=== PATIENT | female | born 1955 | race Caucasian/White ===

== ENCOUNTER → 2018-05-14 | Day surgery (SDC) | payer BC ==
[~2018-05-14] MED LIST: FENTANYL CITRATE/PF 100MCG/2 ML INJ ONE; GABAPENTIN800 MG PO; LIDOCAINE HCL 2% LOCAL INJ 5 ML SDV VIAL INJ ONE; MIDAZOLAM HCL 2 MG/2 ML VIAL ONE; PROPOFOL IV EMULSION 10 MG/ML 50 ML VIAL ONE; VIMOVO PO; XYZAL5 MG PO
--- NOTE | 2018-05-14 15:34 | Operative Report ---
DATE OF PROCEDURE: May 14, 2018 REFERRING PHYSICIAN: Dr. Carlos Andersen PROCEDURES PERFORMED 1. Esophagogastroduodenoscopy with biopsies. 2. Colonoscopy with biopsies. INDICATIONS FOR EGD: Upper abdominal pain, nausea, heartburn, indigestion. INDICATIONS FOR COLONOSCOPY: Colorectal cancer screening. Personal history of colon polyps and diarrhea. MEDICATION: Patient was done under MAC. Please see anesthesiologist's note. PROCEDURE: With the patient in the left lateral decubitus position, the flexible fiberoptic Olympus gastroscope was introduced into the esophagus under direct visualization without any difficulty. There was some patchy erythema noted in the distal esophagus. The scope was then advanced with ease into the stomach. Mucosa overlying the antrum and the body revealed some diffuse erythema and mild to moderate edema, and biopsies were obtained and sent to stain for H. pylori. The pylorus was of normal contour and shape. It was intubated with ease, and the scope was advanced all the way to the 2nd portion of the duodenum. Mucosa overlying the proximal 2nd portion appeared to be within normal limits. There was a linear ulcer in the duodenal bulb with heaped-up nodular margins, and that was biopsied. The scope was then withdrawn back into the stomach and retroflexed. The mucosa overlying the fundus and the cardia appeared to be within normal limits. The scope was then straightened out. The stomach was decompressed. Scope was subsequently withdrawn. Patient tolerated the procedure well. IMPRESSION 1. Distal esophagitis, mild. 2. Gastritis, biopsied. Biopsies sent to stain for H. pylori. 3. A linear ulcer, bulb, with heaped-up nodular margins. Biopsies obtained. PLAN: Follow up histology. Initiate Protonix 40 mg 1 p.o. q.a.m. a.c. The patient was then turned around. After adequate lubrication of the anal canal, a flexible fiberoptic Olympus colonoscope was inserted into the rectum with ease and advanced all the way to the cecum. It was then withdrawn slowly. Mucosa overlying the cecum, ascending and transverse appeared to be within normal limits. Some mild inflammatory changes were noted in the left colon, and multiple random biopsies were obtained. The scope was then retroflexed into the distal rectum, and small internal hemorrhoids were noted, none of which was actively bleeding. The scope was then straightened out. It was subsequently withdrawn. Patient tolerated the procedure well. IMPRESSION 1. Mild, patchy, left-sided colitis. 2. Internal hemorrhoids, none actively bleeding. PLAN: Follow up histology. Initiate Bentyl 10 mg 1 p.o. t.i.d. and VSL #3 one p.o. daily. Patient might benefit from a followup colonoscopy in 3 to 5 years. Job#: [id number] cc:CARLOS ANDERSEN MD
== END | disposition home or self-care (01) ==
LOC: OR 09:48
PROVIDERS: ATTEND Internal Medicine Gastroenterology
DX: Z12.11 Encounter for screening for malignant neoplasm of colon (principal); K29.50 Unspecified chronic gastritis without bleeding; K25.9 Gastric ulcer, unspecified as acute or chronic, without hemorrhage or perforation; K51.50 Left sided colitis without complications; K20.9 Esophagitis, unspecified; K62.89 Other specified diseases of anus and rectum; K64.8 Other hemorrhoids; R03.0 Elevated blood-pressure reading, without diagnosis of hypertension; M54.9 Dorsalgia, unspecified; I45.10 Unspecified right bundle-branch block; Z01.810 Encounter for preprocedural cardiovascular examination; Z68.30 Body mass index [BMI] 30.0-30.9, adult; Z87.891 Personal history of nicotine dependence; Z80.0 Family history of malignant neoplasm of digestive organs
CPT/HCPCS: 43239; 45380; 93005; J2001; J2250; 45378

== ENCOUNTER 2021-06-03 15:59 | Outpatient (RCR) | payer MEDICARE ==
[~2021-06-03 15:59] MED LIST changes: -FENTANYL CITRATE/PF 100MCG/2 ML INJ ONE; -LIDOCAINE HCL 2% LOCAL INJ 5 ML SDV VIAL INJ ONE; -MIDAZOLAM HCL 2 MG/2 ML VIAL ONE; -PROPOFOL IV EMULSION 10 MG/ML 50 ML VIAL ONE
== END 2021-06-08 ==
LOC: PT 15:59
PROVIDERS: ATTEND Orthopaedic Surgery
DX: M16.12 Unilateral primary osteoarthritis, left hip (principal); Z96.642 Presence of left artificial hip joint

== ENCOUNTER → 2021-07-09 | Outpatient (RCR) | payer MEDICARE | LOC: PT 06-10 16:31 | PROVIDERS: ATTEND Orthopaedic Surgery | DX: M16.12 Unilateral primary osteoarthritis, left hip (principal); Z96.642 Presence of left artificial hip joint | CPT/HCPCS: 97139 ==